=== PATIENT | male | born 1955 | race Hispanic/Latino ===

== ENCOUNTER → 2018-08-19 | Outpatient (CLI) | payer OTHER | END | disposition home or self-care (01) | LOC: OIH 09:09 | PROVIDERS: ATTEND Internal Medicine Cardiovascular Disease | DX: Z13.6 Encounter for screening for cardiovascular disorders (principal) | CPT/HCPCS: 75571 ==

== ENCOUNTER → 2018-09-03 | Outpatient (CLI) | payer OTHER ==
[~2018-09-03] VITALS: Ht 167.6 cm; Wt 87.1 kg
[~2018-09-03] MED LIST: REGADENOSON 0.4 MG/5 ML PF SYG IVP SCH
== END | disposition home or self-care (01) ==
LOC: SHCH 08:58
PROVIDERS: ATTEND Internal Medicine Cardiovascular Disease
DX: I25.10 Atherosclerotic heart disease of native coronary artery without angina pectoris (principal); R07.9 Chest pain, unspecified
CPT/HCPCS: 78452; 93017; 96374; A9500 ×2; J2785

== ENCOUNTER 2019-02-09 16:52 | Emergency (ER) | payer OTHER ==
[2019-02-09] MEDS ORDERED: KETOROLAC TROMETHAMINE 60 MG/2 ML VIAL ONE (17:58)
== END 2019-02-09 18:33 | disposition home or self-care (01) ==
LOC: EDH 16:52
DX: S43.491A Other sprain of right shoulder joint, initial encounter (principal); I10 Essential (primary) hypertension; E78.5 Hyperlipidemia, unspecified; I25.2 Old myocardial infarction; M19.90 Unspecified osteoarthritis, unspecified site; Z98.890 Other specified postprocedural states; W18.39XA Other fall on same level, initial encounter; Y93.01 Activity, walking, marching and hiking; Y92.89 Other specified places as the place of occurrence of the external cause; Y99.8 Other external cause status
CPT/HCPCS: 73030; 96372; 99283; J1885

== ENCOUNTER 2019-02-22 16:18 | Emergency (ER) | payer OTHER ==
[2019-02-22] MEDS ORDERED: KETOROLAC TROMETHAMINE 30MG/ML ONE (16:59)
[2019-02-22 17:04] LABS: EOSINOPHILS % (AUTO) 1.7 % (0.0-8.0); HEMATOCRIT 43.4 % (42-54); LYMPHOCYTES % (AUTO) 21.6 % (21.0-51.0); MEAN CORPUSCULAR HEMOGLOBIN 31.8 pg (27.0-33.0); MEAN CORPUSCULAR HGB CONC 33.7 g/dL (32.0-36.0); MEAN CORPUSCULAR VOLUME 94.5 fL (79-99); MONOCYTES % (AUTO) 8.2 % (3.0-13.0); NEUTROPHILS % (AUTO) 66.5 % (40.0-77.0); PLATELET COUNT (AUTO) 276 K/uL (130-400); RED CELL DISTRIBUTION WIDTH 14.6 % (11.0-15.5); WHITE BLOOD COUNT (AUTO) 7.7 K/uL (4.8-10.8)
[2019-02-22 17:13] LABS: APPEARANCE,URINE Clear (CLEAR); BILIRUBIN,URINE Negative (NEGATIVE); COLOR,URINE Yellow (YELLOW); GLUCOSE, URINE (UA) Negative (NEGATIVE); KETONES,URINE Negative (NEGATIVE); LEUKOCYTE ESTERASE ,URINE Negative (NEGATIVE); NITRATE,URINE Negative (NEGATIVE); OCCULT BLOOD,URINE Negative (NEGATIVE); PROTEIN,URINE Negative (NEGATIVE)
[2019-02-22 17:20] LABS: AMPHET/METH SCREEN,URINE NEGATIVE (NEGATIVE); BARBITURATE SCREEN, URINE NEGATIVE (NEGATIVE); BENZODIAZEPINES SCREEN,URINE NEGATIVE (NEGATIVE); CANNABINOID SCREEN,URINE NEGATIVE (NEGATIVE); COCAINE SCREEN,URINE NEGATIVE (NEGATIVE); OPIATE SCREEN,URINE NEGATIVE (NEGATIVE); PHENCYCLIDINE SCREEN,URINE NEGATIVE (NEGATIVE)
[2019-02-22 17:28] LABS: POTASSIUM 3.9 mmol/L (3.5-5.1)
[2019-02-22 17:33] LABS: ALBUMIN 3.8 g/dL (3.5-5.0); BILIRUBIN,TOTAL 0.4 mg/dL (0.2-1.0)
== END 2019-02-22 18:20 | disposition home or self-care (01) ==
LOC: EDH 16:18
DX: S46.911A Strain of unspecified muscle, fascia and tendon at shoulder and upper arm level, right arm, initial encounter (principal); S16.1XXA Strain of muscle, fascia and tendon at neck level, initial encounter; E78.5 Hyperlipidemia, unspecified; I25.2 Old myocardial infarction; I10 Essential (primary) hypertension; M19.90 Unspecified osteoarthritis, unspecified site; Z98.890 Other specified postprocedural states; W18.39XA Other fall on same level, initial encounter; Y93.89 Activity, other specified; Y92.098 Other place in other non-institutional residence as the place of occurrence of the external cause; Y99.8 Other external cause status
CPT/HCPCS: 36415; 70450; 72125; 73030; 80053; 80305; 81003; 82550; 84484; 85025; 96374; 99284; J1885

== ENCOUNTER → 2019-11-05 | Outpatient (CLI) | payer OTHER ==
[2019-11-05 16:23] LABS: CREATININE 0.9 mg/dL (0.5-1.5)
== END | disposition home or self-care (01) ==
LOC: LAB 15:48
PROVIDERS: ATTEND Internal Medicine
DX: M25.511 Pain in right shoulder (principal)
CPT/HCPCS: 36415; 82565; 84520

== ENCOUNTER → 2020-04-13 | Outpatient (CLI) | payer OTHER | END | disposition home or self-care (01) | LOC: RAH 07:51 | PROVIDERS: ATTEND Orthopaedic Surgery | DX: M75.121 Complete rotator cuff tear or rupture of right shoulder, not specified as traumatic (principal); X58.XXXA Exposure to other specified factors, initial encounter; Y93.89 Activity, other specified; Y92.89 Other specified places as the place of occurrence of the external cause; Y99.8 Other external cause status | CPT/HCPCS: 73221 ==

== ENCOUNTER 2021-05-02 11:16 | Observation (INO) | payer OTHER ==
[~2021-05-02] VITALS: Ht 167.6 cm; Wt 95.1 kg
[2021-05-02] VITALS (8 sets, daily range): BP systolic 106–154; BP diastolic 53–76
[2021-05-02] MEDS ORDERED: HYDROCODONE/ACETAMINOPHEN 10/325 MG TAB PO ONE (12:00)
[2021-05-02 12:35] LABS: BASOPHILS % (AUTO) 0.3 % (0.0-5.0); HEMATOCRIT 40.4 % (42-54); LYMPHOCYTES % (AUTO) 13.8 % (21.0-51.0); MEAN CORPUSCULAR HEMOGLOBIN 31.6 pg (27.0-33.0); MEAN CORPUSCULAR HGB CONC 33.9 g/dL (32.0-36.0); MEAN CORPUSCULAR VOLUME 93.1 fL (79-99); MONOCYTES % (AUTO) 7.7 % (3.0-13.0); NEUTROPHILS % (AUTO) 76.9 % (40.0-77.0); PLATELET COUNT (AUTO) 223 K/uL (130-400); RED BLOOD CELL COUNT(AUTO) 4.34 MIL/uL (4.50-6.20); RED CELL DISTRIBUTION WIDTH 12.9 % (11.0-15.5); WHITE BLOOD COUNT (AUTO) 11.5 K/uL (4.8-10.8)
[2021-05-02 12:44] LABS: CREATININE 1.2 mg/dL (0.5-1.5); POTASSIUM 4.8 mmol/L (3.5-5.1)
[2021-05-02 12:46] LABS: INR 0.97 (0.85-1.15); PROTHROMBIN TIME 10.6 SEC (9.6-11.6)
[2021-05-02 12:49] LABS: ALBUMIN 3.8 g/dL (3.5-5.0); BILIRUBIN,TOTAL 0.4 mg/dL (0.2-1.0); MAGNESIUM 1.9 mg/dL (1.80-2.40); TOTAL PROTEIN, SERUM 7.5 g/dL (6.0-8.3)
[2021-05-02 12:57] LABS: B-TYPE NATRIURETIC PEPTIDE 28 pg/mL (0-100)
[2021-05-02] MEDS ORDERED: TETANUS/DIPHTHERIA TOXOID [ADULT] 0.5 ML VIAL IM ONE (13:00)
[2021-05-02] MEDS ORDERED: MORPHINE 4 MG SYG IV ONE (13:00)
[2021-05-02] MEDS ORDERED: ONDANSETRON 4MG INJ ONE (13:14)
[2021-05-02] MEDS: CEFAZOLIN SODIUM 1 GM VIAL IVP SCH ×2 (13:26→20:58)
[2021-05-02] MEDS ORDERED: DEXTROSE 5 %-0.45 % NACL 1,000 ML IV ONE (17:14)
[2021-05-02] MEDS ORDERED: ATOR40TA69 PO (18:48)
[2021-05-02] MEDS ORDERED: NITR0.4T50 SL (18:48)
[2021-05-02] MEDS ORDERED: TRAZ-187 PO (18:48)
[2021-05-02] MEDS ORDERED: OMEG-116 PO (18:48)
[2021-05-02] MEDS ORDERED: METO100T7 PO (18:48)
[2021-05-02] MEDS ORDERED: METO-409 PO (18:48)
[2021-05-02] MEDS ORDERED: AMLO1CAP6 PO (18:48)
[2021-05-02] MEDS ORDERED: ASPI-1197 PO (18:48)
[2021-05-02] MEDS ORDERED: TRAM-355 PO (18:48)
[2021-05-02] MEDS ORDERED: NAPR-1180 PO (18:48)
[2021-05-02] MEDS ORDERED: ATOR40TA71 PO (18:48)
[2021-05-02] MEDS ORDERED: NITROGLYCERIN 0.4 MG SL TAB SL PRN (20:30)
[2021-05-02] MEDS ORDERED: NAPROXEN 500 MG TABLET PO PRN (20:30)
[2021-05-02] MEDS: TRAMADOL /APAP 37.5MG/325MG TAB PO SCH (20:58)
[2021-05-02] MEDS ORDERED: NON-FORMULARY MEDICATION 1 EACH (Metoprolol Succinate (Toprol Xl) 100 MG) PO SCH (21:00)
[2021-05-02] MEDS: MORPHINE 4 MG SYG IV PRN (22:10)
[2021-05-02] MEDS: METOPROLOL SUCCINATE 50 MG TAB.SR.24H PO SCH (22:12)
[2021-05-03] VITALS (24 sets, daily range): BP systolic 115–132; BP diastolic 63–89
[2021-05-03] MEDS: CEFAZOLIN SODIUM 1 GM VIAL IVP SCH ×4 (04:14→20:08)
[2021-05-03] MEDS: MORPHINE 4 MG SYG IV PRN ×3 (04:15→23:49)
[2021-05-03] MEDS ORDERED: DHA PO SCH (09:00)
[2021-05-03] MEDS ORDERED: AMLODIPINE-BENAZEPRIL 5-20 MG PO SCH (09:00)
[2021-05-03] MEDS ORDERED: [UNRECOGNIZED DRUG - OTHER] PO SCH (09:00)
[2021-05-03] MEDS ORDERED: OMEGA PO SCH (09:00)
[2021-05-03] MEDS ORDERED: FISH OIL PO SCH (09:00)
[2021-05-03] MEDS ORDERED: EPA PO SCH (09:00)
[2021-05-03] MEDS ORDERED: ATORVASTATIN 40 MG TABLET PO SCH (09:00)
[2021-05-03] MEDS ORDERED: ASPIRIN 81MG CHEW TAB PO SCH (09:00)
[2021-05-03] MEDS: TRAMADOL /APAP 37.5MG/325MG TAB PO SCH ×2 (09:18→20:07)
[2021-05-03] MEDS: ASPIRIN 81MG CHEW TAB PO SCH (09:18)
[2021-05-03] MEDS: FISH OIL 1000 MG/CAP PO SCH (09:18)
[2021-05-03] MEDS: METOPROLOL SUCCINATE 50 MG TAB.SR.24H PO SCH ×2 (09:18→20:07)
[2021-05-03] MEDS: ATORVASTATIN 40 MG TABLET PO SCH (09:18)
[2021-05-03] MEDS: AMLODIPINE-BENAZEPRIL 5-20 MG PO SCH (09:56)
[2021-05-03] MEDS: PHARMACY COMMUNICATION MISC SCH ×4 (10:57→18:30)
[2021-05-03] MEDS ORDERED: LACTATED RINGERS 1000ML 1,000 ML IV ONE (12:39)
[2021-05-03] MEDS ORDERED: LIDOCAINE PF 100MG/5ML (2%) SYRINGE 5ML ONE (13:02)
[2021-05-03] MEDS ORDERED: ONDANSETRON 4MG INJ ONE (13:03)
[2021-05-03] MEDS ORDERED: PROPOFOL 10 MG/ML 20ML VIAL IV ONE (13:03)
[2021-05-03] MEDS ORDERED: MIDAZOLAM HCL 1 MG/ML 2ML VIAL ONE (13:03)
[2021-05-03] MEDS ORDERED: ROCURONIUM 10MG/1ML SYR 10 MG/ML ML ONE (13:03)
[2021-05-03] MEDS ORDERED: FENTANYL CITRATE PF 50 MCG/1 ML 2ML VIAL ONE (13:04)
[2021-05-03] MEDS ORDERED: DEXAMETHASONE SOD PHOSPHATE 10MG/ML 1ML VIAL ONE (13:40)
[2021-05-03] MEDS ORDERED: EPHEDRINE SULFATE 50 MG/ML AMPULE ONE (13:40)
[2021-05-03] MEDS ORDERED: GLYCOPYRROLATE 1 MG/5 ML SYRINGE ONE (14:03)
[2021-05-03] MEDS ORDERED: NEOSTIGMINE 5MG/5ML SYR IV ONE (14:03)
[2021-05-03] MEDS ORDERED: CEFAZOLIN SODIUM 1 GM VIAL IVP SCH (14:15)
[2021-05-03] MEDS ORDERED: MEPERIDINE-PF 25 MG/ML SYG ONE ×2 (14:23→14:36)
[2021-05-04] VITALS: BP 138/71
[2021-05-04 04:24] VITALS: BP 154/72
[2021-05-04] MEDS: PHARMACY COMMUNICATION MISC SCH ×5 (04:30→11:00)
[2021-05-04] MEDS: CEFAZOLIN SODIUM 1 GM VIAL IVP SCH (04:56)
[2021-05-04] MEDS: ATORVASTATIN 40 MG TABLET PO SCH (08:42)
[2021-05-04] MEDS: TRAMADOL /APAP 37.5MG/325MG TAB PO SCH (08:43)
[2021-05-04] MEDS: ASPIRIN 81MG CHEW TAB PO SCH (08:43)
[2021-05-04] MEDS: AMLODIPINE-BENAZEPRIL 5-20 MG PO SCH (08:43)
[2021-05-04] MEDS: METOPROLOL SUCCINATE 50 MG TAB.SR.24H PO SCH (08:43)
[2021-05-04] MEDS: FISH OIL 1000 MG/CAP PO SCH (08:43)
[2021-05-04 09:36] VITALS: BP 136/72
[2021-05-04 13:44] VITALS: BP 129/77
[2021-05-04 16:29] VITALS: BP 140/81
== END 2021-05-04 16:46 | disposition home or self-care (01) ==
LOC: EDBD 11:16 → EDH 11:16 → EDHIP 14:00 → 4BH 23:31
PROVIDERS: ADMIT Internal Medicine; ATTEND Internal Medicine
DX: S52.552A Other extraarticular fracture of lower end of left radius, initial encounter for closed fracture (principal); I25.118 Atherosclerotic heart disease of native coronary artery with other forms of angina pectoris; E11.9 Type 2 diabetes mellitus without complications; E78.5 Hyperlipidemia, unspecified; G40.909 Epilepsy, unspecified, not intractable, without status epilepticus; I10 Essential (primary) hypertension; Z23 Encounter for immunization; W01.0XXA Fall on same level from slipping, tripping and stumbling without subsequent striking against object, initial encounter; Z86.73 Personal history of transient ischemic attack (TIA), and cerebral infarction without residual deficits; Z79.899 Other long term (current) drug therapy; Y93.01 Activity, walking, marching and hiking; Z96.652 Presence of left artificial knee joint
CPT/HCPCS: 25607; 36415; 71045; 73030; 73070; 73100; 73110; 80053; 82550; 83735; 83880; 84484; 85025; 85378; 85610; 90471; 90714; 93005; 96361; 96374; 96375; 96376 ×3; 99285; A4216; A4222; A4223; A4649; A6223; C1713 ×5; C1776; G0378 ×49; J0690 ×6; J1100; J2001; J2175 ×2; J2250; J2270 ×5; J2405 ×2; J2704; J2710; J3010; J3490 ×2; J7030; J7042; J7120